=== PATIENT | female | born 1960 | race Asian ===

== ENCOUNTER 2020-01-25 16:05 | Outpatient (CLI) | payer BC | END 2020-01-25 20:39 | disposition home or self-care (01) | LOC: RAD 16:05 | DX: R63.4 Abnormal weight loss (principal) ==

== ENCOUNTER 2020-09-28 09:53 | Outpatient (CLI) | payer BC | END 2020-09-28 21:49 | disposition home or self-care (01) | LOC: US 09:53 | PROVIDERS: ATTEND Internal Medicine | DX: R63.4 Abnormal weight loss (principal) ==

== ENCOUNTER 2021-12-13 10:17 | Outpatient (CLI) | payer BC | END 2021-12-13 18:57 | disposition home or self-care (01) | LOC: RAD 10:17 | PROVIDERS: ATTEND Internal Medicine | DX: M25.511 Pain in right shoulder (principal); S16.1XXA Strain of muscle, fascia and tendon at neck level, initial encounter; Y92.9 Unspecified place or not applicable ==